=== PATIENT | female | born 1955 | race Two or more races ===

== ENCOUNTER 2024-08-05 10:09 | Inpatient (IN) | payer OTHER ==
[~2024-08-05] VITALS: Ht 152.4 cm; Wt 49.9 kg
[2024-08-05] MEDS ORDERED: SYNTHROID125 MCG (10:43)
[2024-08-05] MEDS ORDERED: IRBESARTAN75 MG (10:43)
[2024-08-05] MEDS ORDERED: DICY20TA (10:44)
--- NOTE | 2024-08-05 11:02 | NUR ---
PACIENTE ALERTA Y ORIENTADA X3 LA CUAL REFIERE DOLOR EPIGASTRICO Y DOLOR DE ESTOMAGO. PACIENTE DE DR. OMAYRA WOODS EL CUAL EL INDICO QUE PASARA POR MARYCRUZ DE EMERGENCIAS. PACIENTE CON PULSO EN 138 SE REALIZA EKG Y SE MUESTRA AA DR. KIM.
--- NOTE | 2024-08-05 11:14 | NUR ---
SE CONECTA A PACIENTE A MONITOR CARDIACO Y OXIMETRIA DE PULSO CONTINUA.
[2024-08-05] MEDS ORDERED: KETOROLAC TROMETHAMINE 30 MG VIAL ONE (11:28)
[2024-08-05] MEDS ORDERED: 0.9 % SODIUM CHLORIDE 1,000 ML IV SCH ×2 (11:30→22:15)
[2024-08-05] MEDS ORDERED: KETOROLAC TROMETHAMINE 30 MG VIAL IV ONE (11:30)
[2024-08-05 12:18] LABS: HEMOGLOBIN 14.1 g/dL (12.0-15.00); MEAN CELL VOLUME 93.9 fL (80.00-100.00); MEAN CORPUSCULAR HEMOGLOBIN 30.7 pg (27.00-32.0); MEAN CORPUSCULAR HGB CONC 32.7 g/dl (32.0-36.0); PLATELET COUNT 183 K/uL (150-450); RED BLOOD COUNT 4.58 M/uL (4.00-6.00); RED CELL DISTRIBUTION WIDTH 13.2 % (11.5-14.5)
--- NOTE | 2024-08-05 12:22 | NUR ---
PACIENTE ALERTA Y ORIENTADA X3. SE EDUCA A PACIENTE SOBRE PROCESO DE SESAR DE MUESTRAS, CANALIZACION Y ADMINISTRACION DE MEDICAMENTOS, REFIERE ENTENDER. SE EJECUTAN ORDENES BAJO MEDIDAS ASEPTICAS.
[2024-08-05 14:53] LABS: PH,URINE 5.5 (5.0-8.0); URINE APPEARANCE Clear; URINE BILIRRUBIN Small (NEGATIVE); URINE BLOOD Negative; URINE COLOR Dark Yellow; URINE GLUCOSE Negative (NEGATIVE); URINE LEUKOCYTE Negative; URINE NITRATE Negative; URINE PROTEIN Trace (NEGATIVE); URINE UROBILINOGEN 0.2 E.U./dl
[2024-08-05 14:54] LABS: URINE BACTERIA 477.2 uL (0.0-1933); URINE CAST 8.24 uL (0.0-1.40); URINE EPITHELIAL CELLS 13.9 uL (0.0-38.8); URINE RBC 2.3 uL (0.0-20.8); URINE WBC 5.2 uL (0.0-23.2)
[2024-08-05 15:03] LABS: CALCIUM 10.6 mg/dL (8.5-10.1); CREATININE SERUM 0.76 mg/dL (0.55-1.02); GFR 75.02; POTASSIUM 4.72 mEq/L (3.5-5.1)
--- NOTE | 2024-08-05 15:39 | NUR ---
PTE ALERTA Y ORIENTADA X3, SE EVETTE S/V. PTE CONECTADA A MONITOR CARDIACO Y OXIMETRIA. PTE EN VAN CON BARANDAS ELEVADAS POR MONTALVO SEGURIDAD EN POSICION SEMI SENTADA. SE MANTIENE BAJO OBSERVACION POR CAMBIO.
[2024-08-05 15:42] LABS: URINE KETONE 40 (NEGATIVE)
[2024-08-05] MEDS ORDERED: DIATRIZOATE MEGLUMINE, SODIUM 30 ML BOTTLE ONE (16:16)
[2024-08-05] MEDS ORDERED: MORPHINE SULFATE 2 MG/ML CARTRIDGE IV PRN (22:15)
[2024-08-05] MEDS ORDERED: ONDANSETRON HCL 4 MG in 0.9 % SODIUM CHLORIDE 50 ML IV PRN (22:15)
[2024-08-05] MEDS ORDERED: PIPERACILLIN/TAZOBACTAM SODIUM 3.375 GM VIAL IV ONE (23:49)
[2024-08-06] MEDS ORDERED: PIPERACILLIN/TAZOBACTAM SODIUM 3.375 GM in DEXTROSE 5 % IN WATER 100 ML IV SCH
[2024-08-06 01:21] VITALS: BP 119/73; O2SAT 97
[2024-08-06 03:07] VITALS: BP 92/65; O2SAT 95
[2024-08-06 06:34] VITALS: BP 90/60; O2SAT 95
[2024-08-06 08:00] VITALS: BP 101/68; O2SAT 97
[2024-08-06] MEDS ORDERED: FAMOTIDINE/PF 20 MG in 0.9 % SODIUM CHLORIDE 8 ML IV PUSH SCH (09:00)
[2024-08-06] MEDS ORDERED: ENOXAPARIN SODIUM 40 MG/0.4 ML SYRINGE SUBCUTANEO SCH (09:00)
[2024-08-06 16:00] VITALS: BP 88/58; O2SAT 96
[2024-08-07 01:54] VITALS: BP 82/52; O2SAT 97
[2024-08-07 08:00] VITALS: BP 102/63; O2SAT 96
[2024-08-07] MEDS ORDERED: AA 2.36%/D6.8W/FAT/E-LYTES NO9 1,440 ML IV SCH ×2 (14:42→17:00)
[2024-08-07 15:49] LABS: CALCIUM 9.9 mg/dL (8.5-10.1); CHOL HDL RATIO 3.6 (0-5.0); CREATININE SERUM 0.72 mg/dL (0.55-1.02); GFR 79.85; POTASSIUM 4.06 mEq/L (3.5-5.1)
[2024-08-07 16:00] VITALS: BP 95/61; O2SAT 96
[2024-08-07] MEDS ORDERED: METOCLOPRAMIDE HCL 5 MG/ML VIAL IV SCH (17:00)
[2024-08-07] MEDS ORDERED: DEXTROSE 5%-WATER 100ML IV.SOLN ONE (17:49)
[2024-08-08] VITALS: BP 90/56; O2SAT 98
[2024-08-08 08:00] VITALS: BP 93/60; O2SAT 99
[2024-08-08 08:05] LABS: ALBUMIN 2.6 gm/dL (3.4-5.0); BILIRUBIN TOTAL 0.45 mg/dL (0.3-1.2); CALCIUM 9.3 mg/dL (8.5-10.1); CREATININE SERUM 0.68 mg/dL (0.55-1.02); GFR 85.29; GLOBULINA 2.4 G/DL (2.4-3.5); POTASSIUM 3.48 mEq/L (3.5-5.1)
[2024-08-08] MEDS ORDERED: POTASSIUM CHLORIDE 20MEQ/100ML H2O PB IV NR (14:00)
[2024-08-08 16:00] VITALS: BP 96/67; O2SAT 97
[2024-08-08] MEDS ORDERED: POTASSIUM CHLORIDE 20MEQ/100ML H2O PB IV ONE (18:15)
[2024-08-08] MEDS ORDERED: MAGNESIUM SULFATE 1,000 MG in 0.9 % SODIUM CHLORIDE 50 ML IV ONE (18:15)
[2024-08-08] MEDS ORDERED: MAGNESIUM SULFATE 50% 1,000 MG/2 ML VIAL ONE (21:11)
[2024-08-09] VITALS: BP 106/72; O2SAT 99
[2024-08-09 09:00] VITALS: BP 115/79; O2SAT 98
[2024-08-09 12:35] LABS: CREATININE SERUM 0.69 mg/dL (0.55-1.02); GFR 83.87; POTASSIUM 4.72 mEq/L (3.5-5.1)
== END 2024-08-09 12:53 | disposition home or self-care (01) | DRG 390 ==
LOC: ER 10:11 → SURH 22:16
PROVIDERS: Emergency Medicine; ADMIT Internal Medicine; ATTEND Internal Medicine
PROC: BW21ZZZ Computerized Tomography (CT Scan) of Abdomen and Pelvis (ICD-10-PCS; principal; 2024-08-05)
PROC: 0DH68UZ Insertion of Feeding Device into Stomach, Via Natural or Artificial Opening Endoscopic (ICD-10-PCS; 2024-08-06)
DX: K56.690 Other partial intestinal obstruction (principal); R14.0 Abdominal distension (gaseous); E87.6 Hypokalemia; E03.8 Other specified hypothyroidism; Z85.42 Personal history of malignant neoplasm of other parts of uterus